=== PATIENT | female | born 1995 | race Two or more races ===

== ENCOUNTER 2019-05-28 14:44 | Emergency (ER) | payer SELFPAY ==
[~2019-05-28] VITALS: Ht 162.6 cm; Wt 86.0 kg
--- NOTE | 2019-05-28 15:07 | NUR ---
pt jm, report received from [facility]. pt c/o upper abd pain x 1 week, also notes throat pain and sob with exertion x 1 week. pt denies n/v. states she had dysuria a few days ago but that has since resolved. pt received 200mcg fentanyl and 4 mg zofran [employer]. pt attached to all monitors. call light in reach. awaiting orders and dispo. report given to MARITZA Barakat who is to assume care.
--- NOTE | 2019-05-28 15:25 | NUR ---
EKG TAKEN BY THIS RN, REVIEWED BY MIKIE LONDONO.
[2019-05-28] MEDS ORDERED: HYDROmorphone 1 MG/ML, 1ML INJ IVPush PRN (15:30)
[2019-05-28] MEDS ORDERED: ONDANSETRON 2MG/ML, 2ML ONE (15:35)
[2019-05-28] MEDS ORDERED: HYDROmorphone 1 MG/ML, 1ML INJ ONE (15:35)
--- NOTE | 2019-05-28 15:39 | NUR ---
RECEIVED REPORT FROM DAVID SALAS, PLAN OF CARE DISCUSSED
[2019-05-28 15:40] LABS: BASOPHILS # (AUTO) 0.04 x10^3/uL (0-0.1); BASOPHILS % (AUTO) 1 % (0-1); EOSINOPHILS # (AUTO) 0.08 x10^3/uL (0-0.4); EOSINOPHILS % (AUTO) 1 % (1-7); LYMPHOCYTES # (AUTO) 2.11 x10^3/uL (1-3.4); LYMPHOCYTES % (AUTO) 25 % (22-44); MD NO; MEAN CORPUSCULAR HEMOGLOBIN 28.9 pg (27.0-34.8); MEAN CORPUSCULAR HGB CONC 33.2 g/dL (32.4-35.8); MEAN CORPUSCULAR VOLUME 87.3 fL (80-100); MEAN PLATELET VOLUME 7.8 fL (7.4-10.4); MONOCYTES # (AUTO) 0.43 x10^3/uL (0.2-0.8); MONOCYTES % (AUTO) 5 % (2-9); NEUTROPHILS # (AUTO) 5.79 x10^3/uL (1.8-6.8); NEUTROPHILS % (AUTO) 69 % (42-75); PLATELET COUNT 407 x10^3/uL (130-400); RED BLOOD COUNT 4.86 x10^6/uL (3.82-5.3); RED CELL DISTRIBUTION WIDTH 13.3 % (9.6-15.2)
--- NOTE | 2019-05-28 15:46 | NUR ---
PT UP TO BATHROOM GAIT STEADY. PT STATES LEFT SIDE ABD PAIN IS 10/10. MEDICATED PER ORDER. OBTAINED URINE SENT TO LAB. BEDRAILS UP X 2, CALL LIGHT IN PLACE. DISCUSSED PLAN OF CARE. PT VERBALIZED UNDERSTANDING. WARM BLANKET GIVEN
[2019-05-28 15:53] LABS: ALANINE AMINOTRANSFERASE 37 U/L (12-78); ALBUMIN 3.6 g/dL (3.4-5.0); ANION GAP 9 mmol/L (5-15); CALCIUM 8.5 mg/dL (8.5-10.1); CHLORIDE 107 mmol/L (98-107); CREATININE 0.75 mg/dL (0.55-1.02)
[2019-05-28 15:58] LABS: MICROSCOPIC NOT IND
[2019-05-28 15:58] LABS: ALKALINE PHOSPHATASE 85 U/L (45-117); BILIRUBIN,TOTAL 0.4 mg/dL (0.2-1.0); TOTAL PROTEIN 7.9 g/dL (6.4-8.2)
[2019-05-28] MEDS ORDERED: ONDANSETRON 2MG/ML, 2ML IVPush ONE (16:00)
[2019-05-28 16:05] LABS: CULTURE INDICATED? NO
[2019-05-28] MEDS ORDERED: KETOROLAC 30 MG/1 ML ONE (16:18)
--- NOTE | 2019-05-28 16:24 | NUR ---
MEDICATED PER ORDERS PT STATES PAIN LEVEL IS STILL A 10/10
[2019-05-28] MEDS ORDERED: KETOROLAC 30 MG/1 ML IVPush ONE (16:30)
[2019-05-28] MEDS ORDERED: SODIUM CHLORIDE FLUSH 10ML SYR IVF ONE (16:30)
--- NOTE | 2019-05-28 17:42 | NUR ---
PT TO CT SCAN VIA [facility]
--- NOTE | 2019-05-28 19:04 | NUR ---
REPORT TO JACQUI SALAS AND CHAYA SALAS, PLAN OF CARE DISCUSSED
[2019-05-28 19:05] VITALS: BP 111/72
== END 2019-05-28 19:09 | disposition home or self-care (01) ==
LOC: ED 19:03
DX: R10.12 Left upper quadrant pain (principal)
CPT/HCPCS: 36415; 71045; 74176; 80053; 81003; 83605; 83690; 84703; 85025; 85379; 87040; 93005; 96374; 96375; 99284; J1170; J1885; J2405